=== PATIENT | female | born 1995 | race Caucasian/White ===

== ENCOUNTER 2021-11-25 02:32 | Inpatient (IN) | payer OTHER ==
[2021-11-25] VITALS (16 sets, daily range): BP systolic 98–137; BP diastolic 55–82; PULSE 62–95; TEMP 98–98.6
[~2021-11-25] VITALS: Ht 167.6 cm; Wt 93.6 kg
--- NOTE | 2021-11-25 02:41 | NUR ---
0241- PT PRESENTS TO LDR PER WHEELCHAIR COMPLAINING OF CONTRACTIONS THAT STARTED AROUND MIDNIGHT. TO ROOM LR5, CHANGED INTO GOWN. 0249- EFM MONITORY APPLIED X2. PT DENIES VAGINAL BLEEDING AND STATES SHE IS FEELING BABY MOVE. STATES SHE IS UNSURE ABOUT RUPTURE OF MEMBRANES AT THIS TIME. 0300- AMNITRACE NEGATIVE FOR ROM. SVE BY THIS NURSE CLOSED AND HIGH. CERVIX IS VERY POSTERIOR AND HIGH. PLAN OF CARE DISCUSSED FOR LABOR CHECK AND PT IS AGREEABLE TO WATCHING ON MONITORS AND BEING RECHECKED. 0310- NURSING ADMISSION HISTORY AND ASSESSMENT COMPLETE. 0325- DR GUARDADO CALLED CHARTED. 0345- PT UP TO BATHROOM.
--- NOTE | 2021-11-25 03:55 | NUR ---
0355- PT BACK TO BED, REPORTS HER CONTRACTIONS ARE STRONGER AT THIS TIME. WILL RECHECK SOON. 0416- PT UP TO BATHROOM AGAIN. STATES HER CONTRACTIONS ARE STRONGER. 0427- PT BACK TO BED, MONITORS ADJUSTED. 0435- SVE BY Dayanna BUCHANAN RN WITH CERVIX STILL VERY POSTERIOR BUT ABLE TO BE PULLED FORWARD FOR BETTER EXAM AT THIS TIME. PT WISHES TO HAVE EPIDURAL. 0438- DR GUARDADO CALLED AND UPDATED CHARTED, ORDERS FOR ADMISSION AND EPIDURAL.
--- NOTE | 2021-11-25 05:00 | NUR ---
REPORT RECEIVED FROM CARLITOS RODRIGUEZ AND CARE WAS ASSUMED AT THIS TIME
[2021-11-25 05:07] LABS: BASO % 0.3 % (0.0-2.0); EOS # 0.1 K/mm3 (0.0-0.7); EOS % 1.1 % (0.0-4.0); GRAN # 7.6 K/mm3 (1.4-6.5); GRAN % 66.8 % (42.2-75.2); LYMPH # 2.9 K/mm3 (1.2-3.4); LYMPH % 25.6 % (20.0-51.0); MEAN CELL VOLUME 82 fl (80.0-100.0); MEAN CORPUSCULAR HGB CONC 32 g/dl (33.0-37.0); MONO # 0.7 K/mm3 (0.1-0.6); MONO % 5.9 % (1.7-9.3); PLATELET COUNT 239 K/mm3 (130-400); RED BLOOD COUNT 3.46 M/mm3 (4.10-5.30); REDCELL DISTRIBUTION WIDTH-CV 13.2 % (11.5-14.5)
[2021-11-25 05:08] LABS: HEMATOCRIT 28.4 % (37.0-47.0); HEMOGLOBIN 9.2 g/dl (12.5-16.0); MEAN CORPUSCULAR HEMOGLOBIN 27 pg (27-31)
--- NOTE | 2021-11-25 06:00 | NUR ---
0535- PT POSITIONED SITTING UPRIGHT IN BED FOR EPIDURAL. JERED INFORMATICIST PRESENT AT BEDSIDE TO DISCUSS EPIDURAL PROCEDURE. JULIANO'S BASELINE INDETERMINATE DUE TO POSITIONING FOR EPIDURAL. RN AT BEDSIDE AND ADJUSTING EFM MONITOR. FHTS HEARD IN THE 120S. 0543- SINGLE SHOT DOSE ADMINISTERED BY Fifi SAINI INFORMATICIST AT THIS TIME. 0554- PT POSITIONED IN THRONE POSITION. EFM AND TOCO ADJUSTED.
--- NOTE | 2021-11-25 06:15 | NUR ---
BEDSIDE REPORT GIVEN TO RICH RN AND CARE WAS TRANSFERRED AT THIS TIME.
--- NOTE | 2021-11-25 06:58 | NUR ---
0625: PT C/O INCREASED RECTAL PRESSURE AND URGE TO PUSH. SVE COMPLETE/+2 AT THIS TIME. NOTIFIED TO REPORT TO BEDSIDE FOR DELIVERY. DELIVERY TABLE PREPARED AND PT COACHED THROUGH BREATHING AND PUSHING EFFORTS. 0645: AT BEDSIDE. AROM @ 0650, CLEAR FLUID NOTED. PT BEGINS PUSHING AT THIS TIME. 0658: OF VIABLE FEMALE PER . PLACED ON MATERNAL ABDOMEN, CORD CLAMPED X2 AND CUT BY FOB. STRONG CRY NOTED WITH INFANT. CARE ASSUMED BY JENNIFER GONZALES. 0702: OF PLACENTA AT THIS TIME. PITOCIN BEGINS INFUSING PER PROTOCOL. LOCHIA SMALL WITH NO CLOTS NOTED. FUNDUS FIRM AT UMBILICUS WITH FUNDAL CHECK. BEGINS REPAIR OF 1ST DEGREE SIDEWALL LAC. PT'S VITAL SIGNS STABLE AT THIS TIME. TOLERATED DELIVERY WELL. WILL CONTINUE WITH PP FUNDAL MASSAGE AND CARES PER PROTOCOL.
--- NOTE | 2021-11-25 10:15 | NUR ---
PT REPORTS FEELING TO BLE,ABLE TO RAISE AND HOLD BLE X5 SECONDS. LOCHIA SMALL, NO CLOTS NOTED. VITAL SIGNS STABLE. FUNDUS FIRM AND 2FB BELOW UMBILICUS. PT ASSISTED TO SITTING POSITION ON EDGE OF BED, EPIDURAL CATHETER REMOVED. PT TOLERATED PROCEDURE WELL. UPON STANDING PT FELT DECREASED SENSATION TO LLE. ASSISTED INTO WHEELCHAIR BY THIS NURSE AND INTO RESTROOM VIA WHEELCHAIR. PT VOIDS 600CC OF BLOOD TINGED URINE, DENIES DIFFICULTY WITH URINATION. ALEX CARE PROVIDED. NEW GOWN, UNDERWEAR, ICE PACK AND PAD PLACED ON PATIENT. PT DENIES DIZZINESS OR NAUSEA. ONLY C/O "HEAVY FEELING" STILL IN LEFT CALF. ASSISTED BACK INTO WHEELCHAIR AND TO ROOM 215 TO CONTINUE CARES. EDUCATED LAUNCHING PAD MECHANIC LIGHT AND TO USE STAFF ASSISTANCE WITH NEXT AMBULATION UNTIL PT'S LEFT LEG REGAINS FULL FEELING BACK. PT AGREEABLE TO POC. CALL LIGHT WITHIN REACH UPON EXITING ROOM.
[2021-11-26 03:30] VITALS: BP 102/51; PULSE 84; TEMP 98.7
--- NOTE | 2021-11-26 04:39 | NUR ---
PT BROUGHT TO UNIT IN WHEEL CHAIR. PT PRESENTS COMPLAINING OF CTX Q 5 MIN STARTING AT 0100 AND POSSIBLE LEAKING OF FLUIDS AFTER USING THE RESTROOM AT APPROX 0100. PT [age] 40.2 WEEKS, , GBS -, RI, O+. PT DENIES DECREASED MOVEMENT OR VAGINAL BLEEDING. PT SHOWN TO LDR 3 BY THIS RN AND INSTRUCTED TO PUT ON GOWN
[2021-11-26 08:12] VITALS: BP 104/68; PULSE 76; TEMP 98.2
--- NOTE | 2021-11-26 09:20 | NUR ---
Initial visit; Family resting, Software Implementation Project Manager left parents a card letting them know of the availability of spiritual care at our hospital an offered them congratulations and God's blessings for choosing [facility].
== END 2021-11-26 11:10 | disposition home or self-care (01) | DRG 807 ==
LOC: LDRO 02:32 → LDR 02:41 → LDRO 04:38 → LDR 04:42 → OB 10:38
PROVIDERS: Obstetrics & Gynecology; ADMIT Obstetrics & Gynecology
PROC: 10E0XZZ Delivery of Products of Conception, External Approach (ICD-10-PCS; principal; 2021-11-25)
PROC: 0HQ9XZZ Repair Perineum Skin, External Approach (ICD-10-PCS; 2021-11-25)
DX: O99.214 Obesity complicating childbirth (principal); Z37.0 Single live birth; O70.0 First degree perineal laceration during delivery; O99.353 Diseases of the nervous system complicating pregnancy, third trimester; G43.909 Migraine, unspecified, not intractable, without status migrainosus; Z3A.39 39 weeks gestation of pregnancy
CPT/HCPCS: J2590; J2795; J7120